=== PATIENT | female | born 1995 | race Caucasian/White ===

== ENCOUNTER 2021-06-01 13:54 | Emergency (ER) | payer OTHER ==
[~2021-06-01] VITALS: Ht 167.6 cm; Wt 63.5 kg
[2021-06-01 14:27] VITALS: BP 133/80
--- NOTE | 2021-06-01 15:20 | NUR ---
DR ARROYO AT BEDSIDE.
--- NOTE | 2021-06-01 15:31 | NUR ---
25 Y/O F C/O CHEST PAIN 5/10 FOR 3 WKS ON AND OFF BUT WORSE TODAY. PAIN RADIATES TO HER UPPER BACK. PT DENIES N/V/D OR CHILLS. NO PMH. ALLERGIES: AMOXICILLIN
[2021-06-01 16:30] LABS: BASOPHILS % (AUTO) 0.6 % (0.0-2.0); EOSINOPHILS # (AUTO) 0.1 K/uL (0-0.4); EOSINOPHILS % (AUTO) 1.6 % (0.0-4.0); HEMATOCRIT 36.7 % (36-48); HEMOGLOBIN 11.9 g/dL (12.0-16.0); LYMPHOCYTES # (AUTO) 1.5 K/uL (2.5-16.5); LYMPHOCYTES % (AUTO) 25.1 % (20.5-51.1); MEAN CORPUSCULAR HEMOGLOBIN 25 pg (27-31); MEAN CORPUSCULAR HGB CONC 32 g/dL (33-37); MEAN CORPUSCULAR VOLUME 77.5 fL (80-94); MONOCYTES # (AUTO) 0.4 K/uL (0.8-1.0); MONOCYTES % (AUTO) 6.5 % (1.7-9.3); NEUTROPHILS # (AUTO) 3.9 K/uL (1.8-7.7); NEUTROPHILS % (AUTO) 66.2 % (42.2-75.2); PLATELET COUNT (AUTO) 193 K/uL (140-450); RED BLOOD CELL COUNT(AUTO) 4.74 MIL/uL (4.20-5.40); RED CELL DISTRIBUTION WIDTH 15.7 % (11.6-13.7); WHITE BLOOD COUNT (AUTO) 5.9 K/uL (4.8-10.8)
[2021-06-01 17:02] LABS: ANION GAP 13.2 (8-16); CARBON DIOXIDE 24.5 mmol/L (21-32); CREATININE 0.7 mg/dL (0.6-1.3); POTASSIUM 3.7 mmol/L (3.5-5.1)
[2021-06-01] MEDS ORDERED: NAPR-54 PO (17:20)
[2021-06-01] MEDS ORDERED: CYCL-711 PO (17:20)
[2021-06-01] MEDS ORDERED: KETOROLAC 30 MG/ML VIAL IM ONE (17:20)
[2021-06-01 17:27] VITALS: BP 91/55
--- NOTE | 2021-06-01 17:29 | NUR ---
Patient discharged with v/s stable. Written and verbal after care instructions given and explained. Patient alert, oriented and verbalized understanding of instructions. Ambulatory with steady gait. All questions addressed prior to discharge. ID band removed. Patient advised to follow up with PMD. Rx of CYCLOBENZAPRINE HCI, NAPROXEN given. Opportunity to ask questions provided and answered.
--- NOTE | 2021-06-01 17:30 | NUR ---
Chart checked and completed. The patient's care was reviewed and supervised by Leighann Medeiros RN.
== END 2021-06-01 17:29 | disposition home or self-care (01) ==
LOC: MED 13:54
DX: R07.9 Chest pain, unspecified (principal)
CPT/HCPCS: 36415; 71045; 80048; 81002; 81025; 85025; 93005; 99285